=== PATIENT | female | born 1955 | race Two or more races ===

== ENCOUNTER → 2024-03-30 | Outpatient (CLI) | payer MEDICARE, MEDICAID, SELFPAY ==
[2024-03-30 11:41] LABS: Basophils % (Auto) 1 % (0-2.5); Eosinophils # (Auto) 0.1 Thou/mm3 (0.0-0.5); Eosinophils % (Auto) 2 % (0-10); Hematocrit 42.4 % (36.0-46.0); Immature Granulocytes % (Auto) 0 % (0-0); Immature Granulocytes Auto 0.01 Thou/mm3 (0.00-0.00); Lymphocytes # (Auto) 2.2 Thou/mm3 (1.0-4.8); Lymphocytes % (Auto) 37 % (10-50); Mean Corpuscular Hemoglobin 28.3 pg (25.0-35.0); Mean Corpuscular Volume 86 fL (80-100); Monocytes # (Auto) 0.4 Thou/mm3 (0.0-0.8); Monocytes % (Auto) 7 % (0-12); Neutrophils # (Auto) 3.2 Thou/mm3 (1.8-7.7); Neutrophils % (Auto) 54 % (37-80); Nucleated Red Blood Cell % 0 /100 WBC (0); Platelet Count 315 Thou/mm3 (140-440); RDW Standard Deviation 43.6 fL (36.4-46.3); Red Blood Count 4.95 Miln/mm3 (4.00-5.20)
[2024-03-30 11:55] LABS: Alanine Aminotransferase 27 U/L (10-49); Albumin, Serum 4.6 gm/dL (3.4-4.8); Albumin/Globulin Ratio 1.8 (1.2-2.2); Alkaline Phosphatase 65 U/L (46-116); Anion Gap 4 (7-16); Aspartate Amino Transferase 21 U/L (0-34); BUN/Creatinine Ratio 36 Ratio (12-20); Bilirubin,Total 0.4 mg/dL (0.3-1.2); Blood Urea Nitrogen 25 mg/dL (9-23); Calcium 10.9 mg/dL (8.3-10.6); Calcium (Corrected) 10.9 mg/dL (8.5-10.1); Carbon Dioxide 32.2 mMol/L (20.0-31.0); Chloride 101 mMol/L (98-107); Creatinine (Component) 0.7 mg/dL (0.6-1.3); Globulin 2.5 gm/dL (2.3-3.5); Glucose 185 mg/dL (74-106); Osmolality,Calculated 283 (275-295); Potassium 4.5 mMol/L (3.4-5.1); Sodium 137 mMol/L (136-145); Total Protein 7.1 gm/dL (5.7-8.2); eGFR > 60 See Note
== END | disposition home or self-care (01) ==
PROVIDERS: PCP Physician Assistant; Referring Provider Nurse Practitioner Family; Visit Provider Nurse Practitioner Family
DX: C50.511 Malignant neoplasm of lower-outer quadrant of right female breast (principal)
CPT/HCPCS: 36415; 80053; 85025

== ENCOUNTER 2024-03-31 11:17 | Outpatient (RCR) | payer MEDICARE, SELFPAY | END 2024-04-23 23:59 | disposition home or self-care (01) | LOC: SCTC 11:17 | PROVIDERS: PCP Physician Assistant; Referring Provider Physician Assistant; Visit Provider Nurse Practitioner Family | DX: C50.511 Malignant neoplasm of lower-outer quadrant of right female breast (principal); Z17.0 Estrogen receptor positive status [ER+]; Z17.21 Progesterone receptor positive status; Z17.32 Human epidermal growth factor receptor 2 negative status; Z92.3 Personal history of irradiation; Z79.811 Long term (current) use of aromatase inhibitors; M85.80 Other specified disorders of bone density and structure, unspecified site; K62.89 Other specified diseases of anus and rectum | CPT/HCPCS: 99212; G0463 ==

== ENCOUNTER 2024-04-05 12:06 | Emergency (ER) | payer MEDICARE, MEDICAID, SELFPAY ==
[2024-04-05 12:20] VITALS: BP 136/73; PULSE 72; RESP 18; TEMP 36.7; O2SAT 100; BMI 32.1
--- NOTE | 2024-04-05 12:27 | XR_ITS ---
Examination: CT abdomen and pelvis without contrast. Coronal 3-D reconstructions. Sagittal 2-D reconstructions. Date and time of exam:April 05, 2024 1327 hours INDICATIONS: Lower abdominal pain beginning 3 days ago CTDI: vol (mGy): 11.9 DLP: (mGycm): 704 Technique: Axial images of the abdomen have been obtained, 3 mm slice thickness Intravenous contrast material has not been administered. Low dose protocols were performed. One or more of the following dose reduction techniques were used; automated exposure control, adjustment of the mA and/or KV according to patient size, use of iterative reconstruction technique. Findings: Hepatomegaly 18 cm with diffuse fatty infiltration Contracted gallbladder Spleen pancreas adrenal glands are not enlarged No renal or ureteral calculi, no hydronephrosis Aorta normal size Normal appendix No bowel obstruction or diverticulitis Urinary bladder intact IMPRESSION: No acute process Consider pelvic sonography follow-up
--- NOTE | 2024-04-05 12:29 | PD.EDRME ---
Rapid Medical Screening Exam RME Arrival date/time: 04/05/24 12:06 68-year-old female presents emergency department with vaginal bleeding and pelvic pain Chief Complaint: Chest Pain Vital signs: Vital Signs Temperature 98.1 F 04/05/24 12:20 Pulse Rate 72 04/05/24 12:20 Respiratory Rate 18 04/05/24 12:20 Blood Pressure 136/73 H 04/05/24 12:20 Pulse Oximetry (%) 100 04/05/24 12:20 Oxygen Delivery Method Room Air 04/05/24 12:20
[2024-04-05] MEDS: HYDROcodone/APAP 5/325 TABLET 1 TAB PO (12:42)
[2024-04-05 13:01] LABS: Basophils # (Auto) 0.1 Thou/mm3 (0.0-0.2); Basophils % (Auto) 1 % (0-2.5); Eosinophils # (Auto) 0.1 Thou/mm3 (0.0-0.5); Eosinophils % (Auto) 2 % (0-10); Hematocrit 41.6 % (36.0-46.0); Hemoglobin 13.5 g/dL (12.0-16.0); Immature Granulocytes % (Auto) 0 % (0-0); Immature Granulocytes Auto 0.02 Thou/mm3 (0.00-0.00); Lymphocytes # (Auto) 2.2 Thou/mm3 (1.0-4.8); Lymphocytes % (Auto) 29 % (10-50); Mean Corpuscular HGB Conc 32.5 g/dl (31.0-37.0); Mean Corpuscular Hemoglobin 28.2 pg (25.0-35.0); Mean Corpuscular Volume 87 fL (80-100); Monocytes # (Auto) 0.5 Thou/mm3 (0.0-0.8); Monocytes % (Auto) 6 % (0-12); Neutrophils # (Auto) 4.8 Thou/mm3 (1.8-7.7); Neutrophils % (Auto) 63 % (37-80); Nucleated Red Blood Cell % 0 /100 WBC (0); Platelet Count 266 Thou/mm3 (140-440); RDW Standard Deviation 44.5 fL (36.4-46.3); Red Blood Count 4.78 Miln/mm3 (4.00-5.20); White Blood Count 7.7 Thou/mm3 (3.6-11.0)
[2024-04-05 13:24] LABS: Alanine Aminotransferase 14 U/L (10-49); Albumin, Serum 4.5 gm/dL (3.4-4.8); Albumin/Globulin Ratio 1.7 (1.2-2.2); Alkaline Phosphatase 67 U/L (46-116); Anion Gap 5 (7-16); Aspartate Amino Transferase 22 U/L (0-34); BUN/Creatinine Ratio 23 Ratio (12-20); Bilirubin,Total 0.4 mg/dL (0.3-1.2); Blood Urea Nitrogen 18 mg/dL (9-23); Calcium 9.8 mg/dL (8.3-10.6); Calcium (Corrected) 9.8 mg/dL (8.5-10.1); Carbon Dioxide 27.8 mMol/L (20.0-31.0); Chloride 101 mMol/L (98-107); Creatinine (Component) 0.8 mg/dL (0.6-1.3); Estimated Creatinine Clearance 76.2 mL/min (>60); Globulin 2.6 gm/dL (2.3-3.5); Glucose 209 mg/dL (74-106); Lipase 92 U/L (12-53); Osmolality,Calculated 276 (275-295); Potassium 4.2 mMol/L (3.4-5.1); Sodium 134 mMol/L (136-145); Total Protein 7.1 gm/dL (5.7-8.2); eGFR > 60 See Note
[2024-04-05 14:01] LABS: Collection Type, Urine Clean Catch
[2024-04-05 14:26] LABS: Bilirubin,Urine Negative (Negative); Blood,Urine Negative (Negative); Clarity,Urine Clear (Clear/Hazy); Color,Urine Lt-Yellow (Lt Yel-Yel); Culture Indicated,Urine Not Indicated; Glucose, Urine 4+ (Negative); Ketones,Urine Negative (Negative); Leukocyte Esterase,Urine Negative (Negative); Nitrite,Urine Negative (Negative); Protein,Urine Negative (Neg - Trace); RBC,Urine 1 /hpf (0-3); Squamous Epithelial Cell,Urine 1 /hpf (0-5); Urobilinogen,Urine Negative mg/dL (0.0-1.0); WBC,Urine 2 /hpf (0-5)
[2024-04-05 16:04] VITALS: BP 136/77; PULSE 61; RESP 18; TEMP 36.6; O2SAT 100
--- NOTE | 2024-04-05 16:09 | PD.EDADULT ---
ED General RME/HPI General Chief complaint: Chest Pain Stated complaint: PAIN CHEST, STOMACH, BACK ; I CAN'T BREATH Arrival date/time: 04/05/24 12:06 RME / HPI RME / HPI narrative: DR. ORTEGA MAIN ED EVALUATION: 68-year-old female presents emergency department bilateral abdominal pain and cramps she says at times when the cramps are there she cannot breathe she states she is anxious she is also worried that she has a tumor because couple months ago she had a CAT scan and found a mass . Patient states she was unable to get follow-up and referral due to insurance reasons and her pain is returned so she is back for reevaluation. Patient also states she has had some minimal blood in her vaginal area but no blood in the stool or urine but she states it was only a streak. Was no fever vomiting diarrhea she has no other complaint or problem. Related Data Home Medications ?Medication ?Instructions ?Recorded ?Confirmed empagliflozin 12.5 mg-metformin 1 tab PO BID 10/11/20 07/02/23 1,000 mg tablet (Synjardy) ergocalciferol (vitamin D2) 1,250 50,000 unit PO QWEEK 10/11/20 07/02/23 mcg (50,000 unit) capsule hydrocodone 10 mg-acetaminophen 1 tab PO Q6H PRN Pain 10/11/20 07/02/23 325 mg tablet losartan 100 1 tab PO QDAY 10/11/20 07/02/23 mg-hydrochlorothiazide 12.5 mg tablet omeprazole 20 mg tablet,delayed 20 mg PO QDAY 10/11/20 07/02/23 release anastrozole 1 mg tablet 1 mg PO QDAY 07/02/23 07/02/23 calcium carbonate 500 mg PO QDAY 07/02/23 07/02/23 icosapent ethyl 1 gram capsule 1 g PO BID 07/02/23 07/02/23 (Vascepa) jzkakw-dspezrlw-gyynkfs 1 cap PO BID 07/02/23 07/02/23 36,000-114,000-180,000 unit capsule,delay rel (Creon) ropinirole 1 mg tablet 1 mg PO QHSPRN 07/02/23 07/02/23 Previous Rx's ?Medication ?Instructions ?Recorded albuterol sulfate 90 mcg/actuation 2 inh inhalation Q6H PRN shortness 12/13/23 breath activated powder inhaler of breath or wheezing #1 ea azithromycin 250 mg tablet See Rx Instructions PO .COMPLEX #6 01/24/24 (Zithromax Z-Jaden) tabs ondansetron 4 mg disintegrating 4 mg PO Q4H PRN nausea and 01/24/24 tablet vomiting 3 doses #10 tabs doxycycline hyclate 100 mg capsule 100 mg PO BID #14 caps 01/31/24 docusate sodium 100 mg capsule 100 mg PO QDAY #30 caps 02/07/24 (Colace) doxycycline hyclate 100 mg capsule 100 mg PO BID #14 caps 02/07/24 Allergies Allergy/AdvReac Type Severity Reaction Status Date / Time No Known Allergies Allergy Verified 04/05/24 12:07 Review of Systems Review of Systems Systems Reviewed: All systems reviewed, normal except as documented Narrative Review of Systems: Review of Systems: Constitutional: DENIES: Fevers,; Eyes: DENIES: Loss of vision, Head/Ear/Nose: DENIES: Loss of hearing. Throat: Denies dysphagia. Cardiovascular: Denies chest pain, Dyspnea or syncope. Respiratory: DENIES: Shortness of breath, Gastrointestinal: POSITIVES: bilateral abdominal pain and cramps DENIES: Rectal bleeding or melena. POSITIVES: some minimal blood in her vaginal area but no blood in the stool or urine but she states it was only a streak Genitourinary: DENIES: Dysuria (painful or difficult urination),; Musculoskeletal: DENIES: Arthralgia (pain in a joint),; Skin: DENIES: Rash,; Neurological: DENIES: loss of function or movement,; Psychiatric: DENIES: recent major life stressor, emotional problem, illicit drug use or abuse,; Endocrinology: DENIES: Weight change,; Hematologic/Lymphatic: DENIES: Abnormal bruising. Allergic/Immunologic: DENIES: Urticaria (hives), Past Medical History Past Medical History NEUROLOGIC: Positive Neurological Disorders, Transient Ischemic Attacks (TIA), Britton's Palsy and Migraine CARDIAC: Positive Hypercholesterolemia and Hypertension RESPIRATORY: Positive Asthma and Pneumonia GASTROINTESTINAL: Positive Gastrointestinal Disorders, Hemorrhoids and Gastroesophageal Reflux Disease REPRODUCTIVE: Positive Previous Pregnancies MUSCULOSKELETAL: Positive Musculoskeletal Disorders, Arthritis and Degenerative Disk Disease ENDOCRINE: Positive Endocrine Disorders and Diabetes Mellitus Type 2; Negative Diabetes Mellitus Type 1 OTHER HISTORY: Positive Hospitalization and Autoimmune Disease Family History FAMILY HISTORY: Positive Family Psychiatric Problems, Family Respiratory Disorders, Family Cardiac Disorders and Family Surgery Surgical History SURGICAL: Positive Lumpectomy and Hysterectomy Social History SMOKING STATUS: Never smoker SUBSTANCE USE: does not use ALCOHOL: Never ED Exam Narrative Physical exam: Physical Exam: General: The vital signs were reviewed. The patient is non-toxic, in no apparent distress and appears healthy with a patent airway, no respiratory distress and has no apparent circulatory problems. Head & Scalp: Normocephalic, atraumatic. Face: Appears normal and is without lesions, deformity. Ears: Left external pinna appears normal. Right external pinna appears normal. Eyes: The sclera is anicteric. No obvious photophobia. The Left and Right Orbit/Lid/Conjunctiva appears normal without swelling, discoloration or injection. Nose: The nose is without deformity, discharge or tenderness; Throat: Appears normal. The mucous membranes are pink and moist without exudates, redness or mass seen. The tongue appears normal. Neck: The neck is supple and no apparent mass or adenopathy. Chest: The chest wall is normal in size and symmetry and has no chest wall tenderness or crepitus. The patient displays normal ventilator effort without retractions, accessory muscle use and has adequate air movement bilaterally with no wheezes and no rales. Cardiovascular: Regular rate and rhythm; No murmurs, rubs, or gallops; Gastrointestinal: The abdomen appears normal. No obvious hernias or mass. The abdomen has some vague diffuse tenderness but really is basically very soft and benign, non-distended, with no pain, no guarding and no rebound tenderness. Bowel sounds are present and normal sounding. No CVA tenderness. Genitourinary: Back/Spine: Nontender Extremities/Musculoskeletal/lymphatic: The bilateral upper and lower extremities are warm. There is no evidence of arterial insufficiency. There is no evidence of venous insufficiency/edema. The patient spontaneously moves bilateral upper and lower extremities with no pain and no limitation of movement. There is no apparent, injury or trauma. Skin: The skin is warm, dry and intact. No rashes. No petechia. No purpura. No abnormal bruising. The color is appropriate with no cyanosis. Mental status/Psychiatric: Mental status is appropriate for age. The patient has no apparent delusions, visual hallucinations, no apparent audible hallucinations. The patient has no apparent suicidal thoughts/ideation and no apparent homicidal thoughts/ideation. Neurological: The patient is awake, alert, interactive, cordial, cooperative and is oriented to name and situation. The patient follows commands and answers historical question with no impairment. There is no visual disturbance apparent. The pupils are equal and reactive bilaterally with normal eye movements and no diplopia The bilateral upper and lower extremities have normal strength, normal range of motion and normal functioning. The gait, station and balance appear to be baseline with no acute change Course Quality Measures none Orders Category Date Time Status EKG (ED ONLY) *Do not use* NOW Care 04/05/24 12:[address] abdomen pelvis wo con Stat Exams 04/05/24 12:27 Completed EKG (ED Only) Stat Exams 04/05/24 12:19 Stop Req CBC Stat Lab 04/05/24 12:40 Completed Comprehensive Metabolic Panel Stat Lab 04/05/24 12:40 Completed Lipase Stat Lab 04/05/24 12:40 Completed UA, C/S IF [Urinalysis, C/S if Indicated] Stat Lab 04/05/24 13:40 Completed HYDROcodone*/APAP 5/325 [[place] 5/325] Med 04/05/24 12:27 Discontinued 1 tab PO X1 ONE Vital Signs Vital signs: Vital Signs Temperature 98.1 F 04/05/24 12:20 Pulse Rate 72 04/05/24 12:20 Respiratory Rate 18 04/05/24 12:20 Blood Pressure 136/73 H 04/05/24 12:20 Pulse Oximetry (%) 100 04/05/24 12:20 Oxygen Delivery Method Room Air 04/05/24 12:20 [facility] Patient data External records reviewed:: [facility] previous records (Reviewed last ED visit dated 02/15/24, discharged with the following: Chronic lumbar pain.) Clinical information provided by:: patient Social determinants that could affect healthcare access:: none Patient has the following chronic illnesses:: Diabetes, CVA, hypertension How is presenting disease/condition affected by chronic disease/condition?: exacerbated by Evaluation data The following diagnostics were reviewed and interpreted by me:: lab results, radiology exam(s) and EKG tracing(s) Lab and/or radiology exams considered but not ordered:: none Interpretation Summary: See under [facility] narrative. RADIOLOGY Procedure(s): CT abdomen pelvis wo con Accession Number(s): [id number] cc: Sbaas Cheng; Deisy (LUMBER ESTIMATOR),Pete LUMBER ESTIMATOR; Daniel Rasheed MD~ Examination: CT abdomen and pelvis without contrast. Coronal 3-D reconstructions. Sagittal 2-D reconstructions. Date and time of exam:April 05, 2024 1327 hours INDICATIONS: Lower abdominal pain beginning 3 days ago CTDI: vol (mGy): 11.9 DLP: (mGycm): 704 Technique: Axial images of the abdomen have been obtained, 3 mm slice thickness Intravenous contrast material has not been administered. Low dose protocols were performed. One or more of the following dose reduction techniques were used; automated exposure control, adjustment of the mA and/or KV according to patient size, use of iterative reconstruction technique. Findings: Hepatomegaly 18 cm with diffuse fatty infiltration Contracted gallbladder Spleen pancreas adrenal glands are not enlarged No renal or ureteral calculi, no hydronephrosis Aorta normal size Normal appendix No bowel obstruction or diverticulitis Urinary bladder intact IMPRESSION: No acute process Consider pelvic sonography follow-up Dictated By: Daniel Rasheed MD Medications Medications considered but not ordered:: none Medication administrations:: Medication Administration History Discontinued Medications Hydrocodone Bitart/Acetaminophen (Hydrocodone/[place] 5/325 Tablet) 1 tab PO X1 ONE Stop: 04/05/24 12:28 Last Admin: 04/05/24 12:42 Dose: 1 tab Documented By: AA see above Consultations Consultation(s) initiated? (list below): No Diagnosis Differential Diagnosis ED Complaint MDM: Abdominal pain, anxiety Most likely diagnosis given after review of the tests above:: Abdominal pain Admission Indicated Admission indicated?: not indicated Explain why admission is indicated or not indicated:: Patient has no emergent abnormalities on his studies and can be managed on an outpatient basis. Admission Request Was there a request for admission?: No Disposition Plan Disposition Plan: Discharge Discharge Attestation Discharge Attestation: The patient and all family members were given an opportunity to ask questions and understood the discharge instructions. Discharge instructions specifically effects, indications for sooner follow up or return to the emergency department, and the expected course of current diagnosis. Patient condition: Stable Medical Decision Making MDM Narrative MDM Narrative: Patient returns emergency room with recurring bilateral abdominal pain with cramps and reports the story of that she had a mass when she was recently here and concerning for cancer but she was unable to get follow-up appointments and referral so she comes in quite concerned. Medical workup reveals a urine has got 4+ glucose and specific already of 1030. Comprehensive metabolic panel was essentially negative. Glucose is elevated 209. CBC white count came back at 7.7 hemoglobin of 13.5 When back in the room after reevaluating her past CT which showed rectal thickening but today's scan is entirely negative there is no mass seen. We gave her some reassurance advised to return if getting worse as today CT scan is essentially unremarkable. Reevaluation her abdomen was soft and benign and patient's anxiety to be much better after we told her today scan was negative. Differential Diagnosis Differential Diagnosis: Abdominal pain, anxiety Lab Data 04/05/24 12:40 04/05/24 12:40 Labs: Lab Results 04/05/24 04/05/24 Range/Units 12:40 13:40 WBC 7.7 (3.6-11.0) Thou/mm3 RBC 4.78 (4.00-5.20) Miln/mm3 Hgb 13.5 (12.0-16.0) g/dL Hct 41.6 (36.0-46.0) % MCV 87 (80-100) fL MCH 28.2 (25.0-35.0) pg MCHC 32.5 (31.0-37.0) g/dl RDW Std Deviation 44.5 (36.4-46.3) fL Plt Count 266 D (140-440) Thou/mm3 Neut % (Auto) 63 (37-80) % Lymph % (Auto) 29 (10-50) % [place] % (Auto) 6 (0-12) % Eos % (Auto) 2 (0-10) % Baso % (Auto) 1 (0-2.5) % Neut # (Auto) 4.8 (1.8-7.7) Thou/mm3 Lymph # (Auto) 2.2 (1.0-4.8) Thou/mm3 [place] # (Auto) 0.5 (0.0-0.8) Thou/mm3 Eos # (Auto) 0.1 (0.0-0.5) Thou/mm3 Baso # (Auto) 0.1 (0.0-0.2) Thou/mm3 Immature Gran # (Auto) 0.02 H (0.00-0.00) Thou/mm3 Absolute Nucleated RBC 0.00 (0.00-0.00) Thou/mm3 Immature Gran % 0 (0-0) % Nucleated RBC % 0 (0) /100 WBC Sodium 134 L (136-145) mMol/L Potassium 4.2 (3.4-5.1) mMol/L Chloride 101 (98-107) mMol/L Carbon Dioxide 27.8 (20.0-31.0) mMol/L Anion Gap 5 L (7-16) BUN 18 (9-23) mg/dL Creatinine 0.8 (0.6-1.3) mg/dL Estim Creat Clear Calc 76.2 (>60) mL/min eGFR > 60 (60 - ) See Note BUN/Creatinine Ratio 23 H (12-20) Ratio Glucose 209 H (74-106) mg/dL Calculated Osmolality 276 (275-295) Calcium 9.8 (8.3-10.6) mg/dL Corrected Calcium 9.8 (8.5-10.1) mg/dL Total Bilirubin 0.4 (0.3-1.2) mg/dL AST 22 (0-34) U/L ALT 14 (10-49) U/L Alkaline Phosphatase 67 (46-116) U/L Total Protein 7.1 (5.7-8.2) gm/dL Albumin 4.5 (3.4-4.8) gm/dL Globulin 2.6 (2.3-3.5) gm/dL Albumin/Globulin Ratio 1.7 (1.2-2.2) Lipase 92 H (12-53) U/L Ur Collection Type Clean Catch Urine Color Lt-Yellow (Lt Yel-Yel) Urine Clarity Clear (Clear/Hazy) Urine pH 6.0 (5.0-7.0) Ur Specific [place] 1.030 (1.001-1.035) Urine Protein Negative (Neg - Trace) Urine Glucose (UA) 4+ A (Negative) Urine Ketones Negative (Negative) Urine Blood Negative (Negative) Urine Nitrite Negative (Negative) Urine Bilirubin Negative (Negative) Urine Urobilinogen (Auto) Negative (0.0-1.0) mg/dL Ur Leukocyte Esterase Negative (Negative) Urine RBC 1 (0-3) /hpf Urine WBC 2 (0-5) /hpf Ur Squamous Epith Cells 1 (0-5) /hpf Urine Bacteria None (None) Ur Culture Indicated? Not Indicated Discharge Plan Plan Patient Disposition: HOME (Self Care) Prescriptions/Referrals Prescriptions/Med Rec: No Action hydrocodone-acetaminophen 10-325 mg tablet 1 tab PO Q6H PRN (Reason: Pain) Hold Instructions: Resume on 07/03/23. ergocalciferol (vitamin D2) 1,250 mcg (50,000 unit) capsule 50,000 unit PO QWEEK Patient Comments: TOME 1 C PSULA POR V A ORAL CADA SEMANA Rx Instructions: mondays. losartan-hydrochlorothiazide 100-12.5 mg tablet 1 tab PO QDAY Patient Comments: TOME DONA TABLETA TODOS LOS D omeprazole 20 mg tablet,delayed release (DR/EC) 20 mg PO QDAY Patient Comments: TOME DONA TABLETA POR V A ORAL TODOS LOS D 30 MINUTOS 1 HORA ANTES DE COMER Synjardy 12.5-1,000 mg tablet 1 tab PO BID Patient Comments: TOME DONA TABLETA DOS VECES AL D A anastrozole 1 mg Tablet 1 mg PO QDAY ropinirole 1 mg tablet 1 mg PO QHSPRN icosapent ethyl [Vascepa] 1 gram capsule 1 g PO BID Creon 36,000-114,000- 180,000 unit capsule,delayed release(DR/EC) 1 cap PO BID calcium carbonate 500 mg calcium (1,250 mg) Tablet 500 mg PO QDAY albuterol sulfate 90 mcg/actuation aerosol powdr breath activated 2 inh inhalation Q6H PRN (Reason: shortness of breath or wheezing) Qty: 1 0RF ondansetron 4 mg tablet,disintegrating 4 mg PO Q4H PRN (Reason: nausea and vomiting) 0 Days Qty: 10 0RF Rx Instructions: 1st dose 1-2 hr before radiation azithromycin [Zithromax Z-Jaden] 250 mg tablet See Rx Instructions PO .COMPLEX Qty: 6 0RF Rx Instructions: For 250 mg dose pack: take 500 mg today (day 1), then 250 mg for 4 days (days 2-5) doxycycline hyclate 100 mg capsule 100 mg PO BID Qty: 14 0RF doxycycline hyclate 100 mg capsule 100 mg PO BID Qty: 14 0RF docusate sodium [Colace] 100 mg capsule 100 mg PO QDAY Qty: 30 0RF Referrals: Sabas Sanz [Primary Care Provider] - In 1 week Problem List Clinical Impression: Abdominal pain Patient/Caregiver Discharge Instructions Education Materials: Abdominal Pain Additional Instructions: As we discussed your CAT scan today was negative and your labs that were unremarkable. Follow-up with your doctor for recheck as needed for the abdominal pain if you are getting worse in the next 8 to 12 hours or not improved please return for reevaluation. Print Language: Sami Stand Alone Forms: Patient Portal Info Letter
== END 2024-04-05 17:42 | disposition home or self-care (01) ==
PROVIDERS: Nurse Practitioner Primary Care; Emergency Provider Emergency Medicine; PCP Physician Assistant
DX: R10.84 Generalized abdominal pain (principal)
CPT/HCPCS: 36415; 74176; 80053; 81001; 83690; 85025; 93005; 99284; A9270

== ENCOUNTER 2024-04-23 15:39 | Emergency (ER) | payer MEDICARE, MEDICAID, SELFPAY ==
[2024-04-23 16:16] VITALS: BP 148/76; PULSE 77; RESP 18; TEMP 36.6; O2SAT 96; BMI 32.1
--- NOTE | 2024-04-23 16:20 | XR_ITS ---
Examination: Hand, left 3 views Technique: Hand AP, oblique, lateral 3 views Date and time of exam: April 23, 2024 at 1830 hrs. Indications: Injured the hand today with fifth digit pain. Findings: Moderate osteopenia No acute fracture No dislocation Impression: No acute fracture
--- NOTE | 2024-04-23 16:21 | PD.EDRME ---
Rapid Medical Screening Exam RME Arrival date/time: 04/23/24 15:39 68-year-old female presents emergency department complaining of left fifth digit pain after injury with car door that occurred yesterday. Chief Complaint: Hand/Wrist Problems Time Seen by Provider: 04/23/24 16:13 Vital signs: Vital Signs Temperature 97.8 F 04/23/24 16:16 Pulse Rate 77 04/23/24 16:16 Respiratory Rate 18 04/23/24 16:16 Blood Pressure 148/76 H 04/23/24 16:16 Pulse Oximetry (%) 96 04/23/24 16:16 Oxygen Delivery Method Room Air 04/23/24 16:16 Vital signs reviewed by provider: Yes
[2024-04-23] MEDS: KETOROLAC INJ 60 MG/2 ML VIAL 30 MG IM (16:26)
--- NOTE | 2024-04-23 16:57 | PD.EDHAND ---
Upper Extremity Injury RME/HPI General Chief Complaint: Hand/Wrist Problems Stated Complaint: LEFT PINKY INJURY POST CAR DOOR INJURY X LAST NITE Time Seen by Provider: 04/23/24 16:13 Source: patient Arrival date/time: 04/23/24 15:39 68-year-old female presents emergency department complaining of left fifth digit pain after injury with car door that occurred yesterday. Mode of arrival: ambulatory Limitations: no limitations RME / HPI RME / HPI narrative: 04/23/24 15:39 68-year-old female presents emergency department complaining of left fifth digit pain after injury with car door that occurred yesterday. Related Data Home Medications ?Medication ?Instructions ?Recorded ?Confirmed empagliflozin 12.5 mg-metformin 1 tab PO BID 10/11/20 07/02/23 1,000 mg tablet (Synjardy) ergocalciferol (vitamin D2) 1,250 50,000 unit PO QWEEK 10/11/20 07/02/23 mcg (50,000 unit) capsule hydrocodone 10 mg-acetaminophen 1 tab PO Q6H PRN Pain 10/11/20 07/02/23 325 mg tablet losartan 100 1 tab PO QDAY 10/11/20 07/02/23 mg-hydrochlorothiazide 12.5 mg tablet omeprazole 20 mg tablet,delayed 20 mg PO QDAY 10/11/20 07/02/23 release anastrozole 1 mg tablet 1 mg PO QDAY 07/02/23 07/02/23 calcium carbonate 500 mg PO QDAY 07/02/23 07/02/23 icosapent ethyl 1 gram capsule 1 g PO BID 07/02/23 07/02/23 (Vascepa) tmvnae-[id number]-yhysbxm 1 cap PO BID 07/02/23 07/02/23 36,000-114,000-180,000 unit capsule,delay rel (Creon) ropinirole 1 mg tablet 1 mg PO QHSPRN 07/02/23 07/02/23 Previous Rx's ?Medication ?Instructions ?Recorded albuterol sulfate 90 mcg/actuation 2 inh inhalation Q6H PRN shortness 12/13/23 breath activated powder inhaler of breath or wheezing #1 ea azithromycin 250 mg tablet See Rx Instructions PO .COMPLEX #6 01/24/24 (Zithromax Z-Jaden) tabs ondansetron 4 mg disintegrating 4 mg PO Q4H PRN nausea and 01/24/24 tablet vomiting 3 doses #10 tabs doxycycline hyclate 100 mg capsule 100 mg PO BID #14 caps 01/31/24 docusate sodium 100 mg capsule 100 mg PO QDAY #30 caps 02/07/24 (Colace) doxycycline hyclate 100 mg capsule 100 mg PO BID #14 caps 02/07/24 ibuprofen 600 mg tablet 600 mg PO Q8H PRN pain #20 tabs 04/23/24 Allergies Allergy/AdvReac Type Severity Reaction Status Date / Time No Known Allergies Allergy Verified 04/23/24 15:41 Review of Systems Review of Systems Systems Reviewed: All systems reviewed, normal except as documented Constitutional Constitutional: Reports system reviewed and no additional complaints, except as documented, Denies body ache(s), Denies chills and Denies fever(s) Eyes Eyes: Reports system reviewed and no additional complaints, except as documented and Denies change in vision ENT Ears, Nose, Mouth, and Throat: Reports system reviewed and no additional complaints, except as documented, Denies disequilibrium, Denies dizziness, Denies sore throat and Denies vertigo Cardiovascular Cardiovascular: Reports system reviewed and no additional complaints, except as documented, Denies chest pain and Denies dyspnea Respiratory Respiratory: Reports system reviewed and no additional complaints, except as documented, Denies chest congestion, Denies cough and Denies dyspnea Gastrointestinal Gastrointestinal: Reports system reviewed and no additional complaints, except as documented, Denies abdominal pain, Denies nausea and Denies vomiting Musculoskeletal Musculoskeletal: Reports system reviewed and no additional complaints, except as documented, Denies abnormal gait and Reports arthralgias Integumentary/Breasts Skin/Breast: Reports system reviewed and no additional complaints, except as documented, Denies erythema, Denies rash and Denies wounds Neurologic Neurologic: Reports system reviewed and no additional complaints, except as documented, Denies abnormal gait, Denies disequilibrium, Denies dizziness and Denies vertigo Past Medical History Past Medical History NEUROLOGIC: Positive Neurological Disorders, Transient Ischemic Attacks (TIA), Britton's Palsy and Migraine; Negative Seizures CARDIAC: Positive Hypercholesterolemia and Hypertension; Negative Cardiac Disorders, Congestive Heart Failure, Edema, Cellulitis or Varicose Veins RESPIRATORY: Positive Asthma and Pneumonia; Negative Chronic Obstructive Pulmonary Disease (COPD), Tuberculosis or Sleep Apnea GASTROINTESTINAL: Positive Gastrointestinal Disorders, Hemorrhoids and Gastroesophageal Reflux Disease; Negative Hepatitis GENITOURINARY: Negative Genitourinary Disorders or Renal Disease REPRODUCTIVE: Positive Previous Pregnancies MUSCULOSKELETAL: Positive Musculoskeletal Disorders, Arthritis and Degenerative Disk Disease ENDOCRINE: Positive Endocrine Disorders and Diabetes Mellitus Type 2; Negative Diabetes Mellitus Type 1 HEMATOLOGIC: Negative Blood Disorders or Sickle Cell Disease OTHER HISTORY: Positive Hospitalization and Autoimmune Disease; Negative Shingles, Falls, Blood Transfusions, Anesthesia Reactions, Chemotherapy, Radiation Therapy, MRSA, Chicken Pox, Measles, Mumps or Cancer Family History FAMILY HISTORY: Positive Family Psychiatric Problems, Family Respiratory Disorders, Family Cardiac Disorders and Family Surgery; Negative Family Gastrointestinal Problems, Family Cancer or Family Anesthesia Reaction Surgical History SURGICAL: Positive Lumpectomy and Hysterectomy; Negative Cardiac Surgery, Pacemaker or Gastric Bypass Surgery Social History SMOKING STATUS: Never smoker SUBSTANCE USE: does not use ED Exam General Limitations: Present no limitations General appearance: Present alert and in no apparent distress Head Head exam: Present atraumatic Eye Eye exam: Present normal appearance, PERRL and EOMI ENT ENT exam: Present normal exam, normal oropharynx and mucous membranes moist Neck Neck exam: Present normal inspection, full ROM and trachea midline Chest Chest inspection: Present normal inspection and symmetric chest wall rise Respiratory Respiratory exam: Present normal lung sounds bilaterally Cardiovascular Cardiovascular exam: Present regular rate, normal rhythm and normal heart sounds Abdominal Exam Abdominal exam: Present soft and normal bowel sounds Extremities Exam Extremities exam: Present normal inspection and full ROM Back Exam Back exam: Present normal inspection and full ROM Neurological Exam Neurological exam: Present alert, oriented X3 and CN II-XII intact Psychiatric Psychiatric exam: Present normal affect and normal mood Skin Skin exam: Present warm, dry, intact and normal color Course Quality Measures none Orders Category Date Time Status XR hand comp LT min 3V Stat Exams 04/23/24 16:20 Completed Ketorolac Inj [Toradol Inj] Med 04/23/24 16:20 Discontinued 30 mg IM X1 ONE Vital Signs Vital signs: Vital Signs Temperature 97.8 F 04/23/24 16:16 Pulse Rate 77 04/23/24 16:16 Respiratory Rate 18 04/23/24 16:16 Blood Pressure 148/76 H 04/23/24 16:16 Pulse Oximetry (%) 96 04/23/24 16:16 Oxygen Delivery Method Room Air 04/23/24 16:16 96% RA WNL. Extremity Injury MDM Narrative MDM Narrative:: 68-year-old female presents emergency department complaining of left fifth digit pain after injury with car door that occurred yesterday. XR negative for acute fracture or dislocation. Patient left 5th digit neurovascularly intact with full active ROM. Patient data External records reviewed:: [facility] previous records Clinical information provided by:: patient Social determinants that could affect healthcare access:: none Patient has the following chronic illnesses:: see chart How is presenting disease/condition affected by chronic disease/condition?: uneffected by Evaluation data The following diagnostics were reviewed and interpreted by me:: radiology exam(s) Lab and/or radiology exams considered but not ordered:: ordered Interpretation Summary: interpreted by me Medications / Prescriptions Medications or Prescriptions considered but not ordered:: n/a Medication administrations:: Medication Administration History Discontinued Medications Ketorolac Tromethamine (Ketorolac Inj 60 Mg/2 Ml Vial) 30 mg IM X1 ONE Stop: 04/23/24 16:21 Last Admin: 04/23/24 16:26 Dose: 30 mg Documented By: given Consultations Consultation(s) initiated? (list below): No Diagnosis Upper Extremity Injury Differential Diagnosis: finger sprain, dislocation of finger, fracture of hand and fracture of clavicle Most likely diagnosis given after review of the tests above:: finger sprain Admission Indicated Admission indicated?: not indicated Admission Request Was there a request for admission?: No Disposition Plan Disposition Plan: Discharge Discharge Attestation Discharge Attestation: The patient and all family members were given an opportunity to ask questions and understood the discharge instructions. Discharge instructions specifically effects, indications for sooner follow up or return to the emergency department, and the expected course of current diagnosis. Patient condition: Stable Discharge Plan Plan Patient Disposition: HOME (Self Care) Disposition Comment: Stable Prescriptions/Referrals Prescriptions/Med Rec: New ibuprofen 600 mg tablet 600 mg PO Q8H PRN (Reason: pain) Qty: 20 0RF No Action hydrocodone-acetaminophen 10-325 mg tablet 1 tab PO Q6H PRN (Reason: Pain) Hold Instructions: Resume on 07/03/23. ergocalciferol (vitamin D2) 1,250 mcg (50,000 unit) capsule 50,000 unit PO QWEEK Patient Comments: AMISHA 1 C PSULA POR V A ORAL CADA SEMANA Rx Instructions: mondays. losartan-hydrochlorothiazide 100-12.5 mg tablet 1 tab PO QDAY Patient Comments: TOME DONA TABLETA TODOS LOS D omeprazole 20 mg tablet,delayed release (DR/EC) 20 mg PO QDAY Patient Comments: TOME DONA TABLETA POR V A ORAL TODOS LOS D 30 MINUTOS 1 HORA ANTES DE COMER Synjardy 12.5-1,000 mg tablet 1 tab PO BID Patient Comments: TOME DONA TABLETA DOS VECES AL D A anastrozole 1 mg Tablet 1 mg PO QDAY ropinirole 1 mg tablet 1 mg PO QHSPRN icosapent ethyl [Vascepa] 1 gram capsule 1 g PO BID Creon 36,000-114,000- 180,000 unit capsule,delayed release(DR/EC) 1 cap PO BID calcium carbonate 500 mg calcium (1,250 mg) Tablet 500 mg PO QDAY albuterol sulfate 90 mcg/actuation aerosol powdr breath activated 2 inh inhalation Q6H PRN (Reason: shortness of breath or wheezing) Qty: 1 0RF ondansetron 4 mg tablet,disintegrating 4 mg PO Q4H PRN (Reason: nausea and vomiting) 0 Days Qty: 10 0RF Rx Instructions: 1st dose 1-2 hr before radiation azithromycin [Zithromax Z-Jaden] 250 mg tablet See Rx Instructions PO .COMPLEX Qty: 6 0RF Rx Instructions: For 250 mg dose pack: take 500 mg today (day 1), then 250 mg for 4 days (days 2-5) doxycycline hyclate 100 mg capsule 100 mg PO BID Qty: 14 0RF doxycycline hyclate 100 mg capsule 100 mg PO BID Qty: 14 0RF docusate sodium [Colace] 100 mg capsule 100 mg PO QDAY Qty: 30 0RF Referrals: Sabas Sanz [Primary Care Provider] - In 1 week Problem List Clinical Impression: Finger sprain Patient/Caregiver Discharge Instructions Discharge Activity: activity as tolerated Education Materials: Self-Care for Strains and Sprains, ED Finger Sprain Additional Instructions: Take medication as prescribed. Follow-up with primary care provider in 2 to 3 days. Return to emergency department for any worsening symptoms or as needed. Print Language: Upper Sorbian Stand Alone Forms: [employer] Award Info., Patient Portal Info Letter PA/ROLLER EMBOSSER Supervising Physician PA/ROLLER EMBOSSER Supervising Physician: Dr. Kohli
== END 2024-04-23 18:04 | disposition home or self-care (01) ==
PROVIDERS: Emergency Provider Emergency Medicine; PCP Physician Assistant
DX: S63.617A Unspecified sprain of left little finger, initial encounter (principal); X58.XXXA Exposure to other specified factors, initial encounter; Y92.810 Car as the place of occurrence of the external cause
CPT/HCPCS: 73130; 96372; 99283; J1885

== ENCOUNTER → 2024-05-10 | Outpatient (CLI) | payer MEDICARE, MEDICAID, SELFPAY ==
--- NOTE | 2024-05-10 11:45 | XR_ITS ---
Examination: Screening digital mammography, bilateral Computer aided detection 3-D breast Tomosynthesis, bilateral Date and time of exam: May 10, 2024 at 1236 hours Compared to mammograms dating to June 07, 2021 Indication: Screening, personal history right breast cancer Technique: Nonmagnified MLO, CC views of the breasts to been obtained, reconstructed from 3-D Tomosynthesis images. R2 computer aided detection program utilized for evaluation of suspicious masses and/or abnormal calcifications. 3-D Tomosynthesis images obtained. Findings: Scattered areas of fibroglandular density. Scar formation upper outer right breast Breast biopsy marker upper outer right breast anterior depth 20 mm focal asymmetry upper outer right breast anterior depth Impression: BI-RADS Category 0: Incomplete: Need additional imaging evaluation 20 mm focal asymmetry upper outer right breast, recommend follow-up spot tomographic views this asymmetry as well as right breast sonography to complete the workup.
--- NOTE | 2024-05-10 12:20 | XR_ITS ---
Examination: Bone densitometry Date and time of exam:May 10, 2024 1255 hours INDICATIONS: Menopause age 55, breast carcinoma diagnosis Technique: Lumbar spine and hip total bone mineralization values of an calculated. Peak reference and age match control results have been displayed. Findings: Lumbar spine total bone mineralization is1.019 gm/cm2. This is 0.3 standard deviations below peak reference. This is 1.8 standard deviations above age-matched controls. Hip total bone mineralization is 1.057 gm/cm2 This is 0.9 standard deviations above peak reference. This is 2.4 standard deviations above age-matched controls Impression: There is normal mineralization based on lumbar spine measurements. There is normal mineralization based on hip measurements Lumbar mineralization is decreased 3.4% compared with 08/07/2021 Hip mineralization is increased 1.3% compared with August 07, 2021
== END | disposition home or self-care (01) ==
PROVIDERS: PCP Physician Assistant; Referring Provider Nurse Practitioner Family; Visit Provider Nurse Practitioner Family
DX: Z12.31 Encounter for screening mammogram for malignant neoplasm of breast (principal); R92.8 Other abnormal and inconclusive findings on diagnostic imaging of breast; N64.89 Other specified disorders of breast; C50.511 Malignant neoplasm of lower-outer quadrant of right female breast
CPT/HCPCS: 77063; 77067; 77080

== ENCOUNTER → 2024-07-06 | Outpatient (CLI) | payer MEDICARE, MEDICAID, SELFPAY ==
--- NOTE | 2024-07-06 09:00 | XR_ITS ---
Examination: Breast ultrasound, unilateral, right Date and time of exam: July 06, 2024 0856 hours INDICATIONS: Diagnosis malignant neoplasm lower outer quadrant right female breast, right retroareolar biopsy January 14, 2024 negative, right breast cancer lumpectomy June 07, 2021, mammogram May 10, 2024 20 mm focal asymmetry upper outer right breast Technique: Real-time reid scale ultrasonographic imaging performed right breast including all 4 quadrants as well as nipple retroareolar and axillary region. Findings: Retroareolar oval mass with biopsy marker 16 x 17 x 18 mm compared to 9 x 4 x 7 mm on December 17, 2023 IMPRESSION: BI-RADS Category 4: Suspicious for malignancy Recommend rebiopsy of the right renal mass right breast
--- NOTE | 2024-07-06 09:45 | XR_ITS ---
Examination: Diagnostic digital mammography, unilateral, right Computer aided detection 3-D breast Tomosynthesis, unilateral Date and time of exam: 20,025 0907 hours INDICATIONS: Mammogram May 10, 2024 20 mm focal asymmetry upper outer right breast Technique: Nonmagnified MLO, CC views of the right breast have been obtained, reconstructed from 3-D Tomosynthesis images. R2 computer aided detection program utilized for evaluation of suspicious masses and/or abnormal calcifications. 3-D Tomosynthesis images obtained. Findings: Scattered areas of fibroglandular density Right breast sonogram today demonstrates enlarging retroareolar oval mass with breast biopsy marker Impression: BI-RADS category 4 : Suspicious for malignancy Enlarging retroareolar nodule right breast on breast sonogram today compared to December 17, 2023 Rebiopsy of this nodule is needed to exclude breast carcinoma
== END | disposition home or self-care (01) ==
LOC: CDIM 08:41
PROVIDERS: PCP Family Medicine; Referring Provider Nurse Practitioner Family; Visit Provider Nurse Practitioner Family
DX: R92.341 Mammographic extreme density, right breast (principal); N63.41 Unspecified lump in right breast, subareolar; C50.511 Malignant neoplasm of lower-outer quadrant of right female breast
CPT/HCPCS: 76641; 77061; 77065; G0279

== ENCOUNTER 2024-07-13 13:04 | Outpatient (RCR) | payer MEDICARE, MEDICAID, SELFPAY | END 2024-07-22 23:59 | disposition home or self-care (01) | LOC: SCTC 13:04 | PROVIDERS: PCP Physician Assistant; Referring Provider Internal Medicine Hematology & Oncology; Visit Provider Nurse Practitioner Family | DX: C50.511 Malignant neoplasm of lower-outer quadrant of right female breast (principal); Z17.0 Estrogen receptor positive status [ER+]; Z17.21 Progesterone receptor positive status; Z17.32 Human epidermal growth factor receptor 2 negative status; Z90.11 Acquired absence of right breast and nipple; Z92.3 Personal history of irradiation; Z79.811 Long term (current) use of aromatase inhibitors; Z79.83 Long term (current) use of bisphosphonates; M85.80 Other specified disorders of bone density and structure, unspecified site | CPT/HCPCS: 99212; G0463 ==

== ENCOUNTER 2024-08-15 11:26 | Outpatient (RCR) | payer MEDICARE, MEDICAID, SELFPAY | END 2024-08-22 23:59 | disposition home or self-care (01) | LOC: SCTC 11:26 | PROVIDERS: PCP Physician Assistant; Referring Provider Nurse Practitioner Family; Visit Provider Nurse Practitioner Family | DX: C50.511 Malignant neoplasm of lower-outer quadrant of right female breast (principal); Z17.0 Estrogen receptor positive status [ER+]; Z17.21 Progesterone receptor positive status; Z17.32 Human epidermal growth factor receptor 2 negative status; Z90.11 Acquired absence of right breast and nipple; Z92.3 Personal history of irradiation; Z79.811 Long term (current) use of aromatase inhibitors; M85.80 Other specified disorders of bone density and structure, unspecified site; Z79.83 Long term (current) use of bisphosphonates; K62.89 Other specified diseases of anus and rectum | CPT/HCPCS: 99212; G0463 ==

== ENCOUNTER → 2024-10-11 | Outpatient (CLI) | payer MEDICARE, MEDICAID, SELFPAY ==
[2024-10-10 15:52] LABS: Basophils % (Auto) 1 % (0-2.5); Eosinophils # (Auto) 0.1 Thou/mm3 (0.0-0.5); Eosinophils % (Auto) 2 % (0-10); Hematocrit 41.5 % (36.0-46.0); Hemoglobin 13.7 g/dL (12.0-16.0); Immature Granulocytes % (Auto) 0 % (0-0); Immature Granulocytes Auto 0.02 Thou/mm3 (0.00-0.00); Lymphocytes # (Auto) 1.6 Thou/mm3 (1.0-4.8); Lymphocytes % (Auto) 28 % (10-50); Mean Corpuscular Hemoglobin 27.9 pg (25.0-35.0); Mean Corpuscular Volume 85 fL (80-100); Monocytes # (Auto) 0.3 Thou/mm3 (0.0-0.8); Monocytes % (Auto) 6 % (0-12); Neutrophils # (Auto) 3.6 Thou/mm3 (1.8-7.7); Neutrophils % (Auto) 63 % (37-80); Nucleated Red Blood Cell % 0 /100 WBC (0); Platelet Count 278 Thou/mm3 (140-440); Red Blood Count 4.91 Miln/mm3 (4.00-5.20); White Blood Count 5.8 Thou/mm3 (3.6-11.0)
[2024-10-10 16:14] LABS: Partial Thromboplastin Time 25.6 Seconds (22.0-36.0)
--- NOTE | 2024-10-11 10:30 | XR_ITS ---
Examinations: Ultrasound-guided percutaneous breast biopsy, right breast retroareolar nodule Right breast sonography limited. Exam date and time: October 11, 2024 1030 hours INDICATIONS: History biopsy BI-RADS 4 suspicious nodule retroareolar region right breast December 17, 2023. Informed consent provided. Technique: A timeout was completed verifying correct patient, procedure, site, positioning, and special equipment if applicable Informed consent provided. The patient was placed in a supine position for the breast biopsy. Sonographic images of the breast were performed for localization of the suspicious nodule The patient's breast was prepped and draped in sterile fashion. Maximum sterile barrier technique, hand hygiene, ultrasound sterile technique 1% lidocaine was used to anesthetize the skin and breast adjacent to the suspicious nodule. Utilizing ultrasonographic guidance, 8 core biopsies were obtained of the suspicious nodule utilizing an 18-gauge BioPince needle. The specimens appears satisfactory. Estimated blood loss 3 cc. The patient tolerated the procedure well and there were no complications. Impression: Successful ultrasound-guided percutaneous breast biopsy, right breast retroareolar nodule.
== END | disposition home or self-care (01) ==
LOC: SDIM 10:04 → SIRX 10:25
PROVIDERS: Radiology Diagnostic Radiology; PCP Physician Assistant; Referring Provider Nurse Practitioner Family; Visit Provider Nurse Practitioner Family
DX: D24.1 Benign neoplasm of right breast (principal); N60.11 Diffuse cystic mastopathy of right breast; R92.0 Mammographic microcalcification found on diagnostic imaging of breast; Z01.812 Encounter for preprocedural laboratory examination; C50.511 Malignant neoplasm of lower-outer quadrant of right female breast
CPT/HCPCS: 19083; 36415; 85025; 85610; 85730

== ENCOUNTER → 2024-10-14 | Outpatient (CLI) | payer MEDICARE, MEDICAID, SELFPAY ==
--- NOTE | 2024-10-14 09:17 | XR_ITS ---
Examination: Abdomen AP single view Technique: AP portable supine abdomen, single view Exam date and time: October 14, 2024 0933 hours INDICATIONS: Abdominal pain and distention beginning 3 months ago. FINDINGS: Moderate stool throughout the colon No obstruction No free air Moderate narrowing hip joints IMPRESSION: Moderate stool throughout the colon
[2024-10-14 10:08] LABS: Collection Type, Urine Clean Catch
[2024-10-14 10:34] LABS: Basophils % (Auto) 1 % (0-2.5); Eosinophils # (Auto) 0.1 Thou/mm3 (0.0-0.5); Eosinophils % (Auto) 2 % (0-10); Hematocrit 40.7 % (36.0-46.0); Hemoglobin 13.6 g/dL (12.0-16.0); Immature Granulocytes % (Auto) 0 % (0-0); Immature Granulocytes Auto 0.02 Thou/mm3 (0.00-0.00); Lymphocytes # (Auto) 2.3 Thou/mm3 (1.0-4.8); Lymphocytes % (Auto) 37 % (10-50); Mean Corpuscular HGB Conc 33.4 g/dl (31.0-37.0); Mean Corpuscular Hemoglobin 27.7 pg (25.0-35.0); Mean Corpuscular Volume 83 fL (80-100); Monocytes # (Auto) 0.5 Thou/mm3 (0.0-0.8); Monocytes % (Auto) 8 % (0-12); Neutrophils # (Auto) 3.3 Thou/mm3 (1.8-7.7); Neutrophils % (Auto) 52 % (37-80); Nucleated Red Blood Cell % 0 /100 WBC (0); Platelet Count 298 Thou/mm3 (140-440); RDW Standard Deviation 44.3 fL (36.4-46.3); Red Blood Count 4.91 Miln/mm3 (4.00-5.20); White Blood Count 6.3 Thou/mm3 (3.6-11.0)
[2024-10-14 10:49] LABS: Vitamin D 25 Hydroxy Total 32.1 ng/mL (7.3-40.2)
[2024-10-14 10:51] LABS: Alanine Aminotransferase 34 U/L (10-49); Albumin, Serum 4.4 gm/dL (3.4-4.8); Albumin/Globulin Ratio 1.8 (1.2-2.2); Alkaline Phosphatase 77 U/L (46-116); Anion Gap 10 (7-16); Aspartate Amino Transferase 26 U/L (0-34); BUN/Creatinine Ratio 30 Ratio (12-20); Bilirubin,Total 0.5 mg/dL (0.3-1.2); Blood Urea Nitrogen 21 mg/dL (9-23); Calcium 9.7 mg/dL (8.3-10.6); Calcium (Corrected) 9.7 mg/dL (8.5-10.1); Carbon Dioxide 29.3 mMol/L (20.0-31.0); Cardiac Risk Estimate 5.6 RATIO (3.7-5.6); Chloride 101 mMol/L (98-107); Cholesterol 281 mg/dL (132-200); Creatinine (Component) 0.7 mg/dL (0.6-1.3); Free T4 (Free Thyroxine) 1.14 ng/dL (0.89-1.76); Globulin 2.4 gm/dL (2.3-3.5); Glucose 188 mg/dL (74-106); HDL Cholesterol 50 mg/dL (40-60); LDL Cholesterol,Calculated 176 mg/dL (0-130); Osmolality,Calculated 287 (275-295); Sodium 140 mMol/L (136-145); Thyroid Stimulating Hormone 1.49 uIU/mL (0.55-4.78); Total Protein 6.8 gm/dL (5.7-8.2); Triglycerides 273 mg/dL (30-150); eGFR > 60 See Note
[2024-10-14 10:55] LABS: Creatinine MALB Rnd Ur 98 mg/dL (30-125); Microalbumin Creat Ratio 17 mg/gCrea (<30); Microalbumin, Random Urine 17 mg/L (0-300)
[2024-10-14 11:03] LABS: Bacteria,Urine Rare; Bilirubin,Urine Negative (Negative); Blood,Urine Negative (Negative); Clarity,Urine Clear (Clear/Hazy); Color,Urine Yellow (Lt Yel-Yel); Glucose, Urine 4+ (Negative); Ketones,Urine Negative (Negative); Leukocyte Esterase,Urine Negative (Negative); Nitrite,Urine Negative (Negative); Protein,Urine Trace (Neg - Trace); RBC,Urine 8 /hpf (0-3); Squamous Epithelial Cell,Urine 1 /hpf (0-5); Urobilinogen,Urine Negative mg/dL (0.0-1.0); WBC,Urine 3 /hpf (0-5)
[2024-10-14 11:10] LABS: Specific Gravity,Urine 1.015 (1.001-1.035)
[2024-10-14 11:11] LABS: Glucose Estimated Average 212 mg/dL (80-131)
[2024-10-24 07:26] LABS: ANA Screen, IFA NEGATIVE (NEGATIVE)
== END | disposition home or self-care (01) ==
LOC: COPL 08:58
PROVIDERS: PCP Physician Assistant; Referring Provider Specialist; Visit Provider Radiology Diagnostic Radiology
DX: K59.00 Constipation, unspecified (principal); R10.13 Epigastric pain; R53.83 Other fatigue; R10.10 Upper abdominal pain, unspecified; I10 Essential (primary) hypertension; E11.65 Type 2 diabetes mellitus with hyperglycemia; E78.2 Mixed hyperlipidemia; E55.9 Vitamin D deficiency, unspecified
CPT/HCPCS: 36415; 74018; 80053; 80061; 81001; 82043; 82306; 82570; 83036; 84439; 84443; 85025; 86038

== ENCOUNTER 2024-10-31 13:53 | Outpatient (RCR) | payer MEDICARE, MEDICAID, SELFPAY | END 2024-11-21 23:59 | disposition home or self-care (01) | LOC: SCTC 13:53 | PROVIDERS: PCP Physician Assistant; Referring Provider Physician Assistant; Visit Provider Nurse Practitioner Family | DX: C50.511 Malignant neoplasm of lower-outer quadrant of right female breast (principal); Z17.0 Estrogen receptor positive status [ER+]; Z17.21 Progesterone receptor positive status; Z17.32 Human epidermal growth factor receptor 2 negative status; Z92.3 Personal history of irradiation; Z90.11 Acquired absence of right breast and nipple; Z79.811 Long term (current) use of aromatase inhibitors; R10.2 Pelvic and perineal pain; N92.4 Excessive bleeding in the premenopausal period; K62.89 Other specified diseases of anus and rectum | CPT/HCPCS: 99212; G0463 ==

== ENCOUNTER 2024-11-11 12:40 | Day surgery (SDC) | payer MEDICARE, MEDICAID, SELFPAY ==
[2024-11-11] VITALS (11 sets, daily range): BP systolic 140–245; BP diastolic 55–95; PULSE 53–79; RESP 11–18; TEMP 36.4–37.1; O2SAT 97–100; BMI 33.0
[2024-11-11] MEDS: SODIUM CHLORIDE 0.9% 500 ML 500 ML 20 ML IV (14:34)
[2024-11-11] MEDS: DiphenhydrAMINE INJ 50 MG/ML VIAL 25 MG IVP (14:37)
[2024-11-11] MEDS: hydrALAZINE INJ 20 MG/ML VIAL 10 MG IVP ×2 (14:40→14:44)
[2024-11-11] MEDS: MIDAZOLAM INJ 1 MG/ML VIAL 2 ML (ASD USE ONLY) 2 MG IVP (14:40)
[2024-11-11] MEDS: fentaNYL CIT INJ 50 mCg/ML AMP 2ML (ASD USE ONLY) IVP (14:40)
== END 2024-11-11 15:40 | disposition home or self-care (01) ==
PROVIDERS: PCP Physician Assistant; Referring Provider Specialist; Visit Provider Specialist
PROC: (CPT 43239; principal; 2024-11-11 13:00)
DX: K22.2 Esophageal obstruction (principal); K20.90 Esophagitis, unspecified without bleeding; K29.70 Gastritis, unspecified, without bleeding
CPT/HCPCS: 43248; 43239; C1769; J0360; J1200; J2250; J3010; J7040